=== PATIENT | male | born 1960 | race Caucasian/White ===

== ENCOUNTER → 2017-02-14 | Outpatient (CLI) | payer OTHER | LOC: FIMAGING 14:19 | PROVIDERS: ATTEND Orthopaedic Surgery Foot and Ankle Surgery | DX: M25.571 Pain in right ankle and joints of right foot (principal); Z96.661 Presence of right artificial ankle joint ==

== ENCOUNTER 2017-06-02 23:50 | Emergency (ER) | payer OTHER ==
[2017-06-02 23:57] VITALS: O2SAT 96
[2017-06-03] MEDS ORDERED: OXYCODONE/APAP 5/325 TAB PO ONE (00:54)
--- NOTE | 2017-06-03 01:08 | EDPHY ---
H & P Stated Complaint: says he fell last pm, c/o worsening pain in R elbow since fall Time Seen by Provider: 06/03/17 00:49 HPI/ROS: Chief Complaint: Right arm pain HPI: 57-year-old male with chronic foot injury to have was riding around on a right leg its router last night when he fell onto his right hand side. Patient struck his shoulder but has had progressively worsening pain in his right elbow since then. He has taken his own OxyContin XR without significant relief. No numbness or weakness. No discoloration or cold sensation. No prior injuries to the same area. ROS: 10 point Review of Systems is negative except as noted in the HPI. PMH: HIV, viral load is undetectable, Social History: No smoking, no alcohol, no recreational drug use Family History: non-contributory Physical Exam: Gen: Awake, Alert, No Distress HEENT: Nose: no rhinorrhea Eyes: PERRLA, EOMI Mouth: Moist mucosa Neck: Supple, no JVD Chest: nontender, lungs clear to auscultation Heart: S1, S2 normal, no murmur Abd: Soft, non-tender, no guarding Back: no CVA tenderness, no midline tenderness Ext: Patient has tenderness over his radial head on his right side. He has no shoulder tenderness but is a decreased range of motion secondary to pain. He has 2+ radial ulnar pulses. Sensations intact in the radial, median, and ulnar nerve distribution. All compartments are soft and nontender. Skin: no rash Neuro: CN II-XII intact, Sensation grossly intact, Strength 5/5 in bilateral upper and lower extremities - Personal History Tetanus Vaccine Date: 03/2012 - Medical/Surgical History Hx Asthma: No Hx Chronic Respiratory Disease: No Hx Diabetes: No Hx Cardiac Disease: Yes Hx Renal Disease: No Hx Cirrhosis: No Hx Alcoholism: No Hx HIV/AIDS: No Hx Splenectomy or Spleen Trauma: No Other PMH: HIV positive, hypertension, bilat ankle surg, cervical disc surg, lumbar surg, R knee surg - Social History Smoking Status: Former smoker Constitutional: Initial Vital Signs Temperature (C) 36.5 C 06/02/17 23:53 Heart Rate 88 06/02/17 23:53 Respiratory Rate 20 06/02/17 23:53 Blood Pressure 183/112 H 06/02/17 23:53 O2 Sat (%) 96 06/02/17 23:53 O2 Delivery Mode Room Air Allergies/Adverse Reactions: lisinopril Allergy (Mild, Verified 06/02/17 23:57) DRY COUGH Home Medications: Medication Instructions Recorded clonazePAM [Klonopin (RX)] 0.5 mg PO Q6 PRN 12/29/11 Aspirin [Aspirin 81mg (*)] 81 mg PO DAILY 07/01/16 Dolutegravir Sodium [Tivicay] 50 mg PO DAILY 07/01/16 Emtricitabine/Tenofov Alafenam 1 tab PO DAILY 07/01/16 [Descovy 200-25 mg Tablet] Ibuprofen [Motrin (*)] 200 - 600 mg PO Q4-6PRN PRN 04/12/17 Losartan/Hydrochlorothiazide 1 each PO DAILY 04/12/17 [Losartan-Hctz 100-25 Mg Tab] amLODIPine BESYLATE [Norvasc 5 mg 5 mg PO DAILY 04/12/17 (*)] traMADol [Ultram 50 mg (*)] 50 mg PO Q4 PRN 04/12/17 Oxycontin 05/25/17 Medical Decision Making - Diagnostics Imaging Results: Right elbow x-rays consistent with a radial head fracture per my interpretation. Right shoulder x-rays negative. Imaging: I viewed and interpreted images myself ED Course/Re-evaluation: 57-year-old male with a right radial head fracture. He has been placed in a posterior long-arm splint. I have reassessed the splint and he has excellent positioning in immobility with normal perfusion. He will be discharged with follow up with Orthopedics. - Data Points Medications Given: Discontinued Medications Hydromorphone HCl (Dilaudid) 2 mg IM EDNOW ONE Stop: 06/03/17 01:48 Last Admin: 06/03/17 02:07 Dose: 2 mg Ondansetron HCl (Zofran Odt) 4 mg PO EDNOW ONE Stop: 06/03/17 02:50 Last Admin: 06/03/17 02:52 Dose: 4 mg Ondansetron HCl (Zofran Odt 4 Mg Prepack#2) 1 btl TAKEHOME EDNOW ONE Stop: 06/03/17 02:50 Last Admin: 06/03/17 02:51 Dose: 1 btl Oxycodone/Acetaminophen (Percocet 5/325) 2 tab PO EDNOW ONE Stop: 06/03/17 00:55 Last Admin: 06/03/17 01:01 Dose: 2 tab Oxycodone/Acetaminophen (Percocet 5/325mg Prepack#4) 1 btl TAKEHOME EDNOW ONE Stop: 06/03/17 01:44 Last Admin: 06/03/17 02:06 Dose: 1 btl Departure - Departure Disposition: Home, Routine, Self-Care Clinical Impression: Radial head fracture Condition: Good Instructions: Oxycodone/Acetaminophen (By mouth), Ondansetron (By mouth), Elbow Fracture (ED) Additional Instructions: Follow-up with orthopedics in 2-3 days. Return to the ER for increasing pain, numbness, discoloration of you hand or fingers, or any other concerns. Referrals: Jose Alberto Munoz MD [Primary Care Provider] - As per Instructions Ananda Montes MD [Medical Doctor] - As per Instructions
[2017-06-03] MEDS ORDERED: OXYCODONE/APAP 5/325MG PREPACK#4 BTL TAKEHOME ONE (01:43)
[2017-06-03] MEDS ORDERED: HYDROmorphONE/DILAUDID 1 MG/ML INJ IM ONE (01:47)
[2017-06-03] MEDS ORDERED: ONDANSETRON 4MG PREPACK#2 BTL TAKEHOME ONE (02:49)
[2017-06-03] MEDS ORDERED: ONDANSETRON DISINTEGRATING 4 MG TAB PO ONE (02:49)
[2017-06-03 02:57] VITALS: BP 144/74; PULSE 74; RESP 16; TEMP 97.9
== END 2017-06-03 02:56 | disposition home or self-care (01) ==
DX: S52.121A Displaced fracture of head of right radius, initial encounter for closed fracture (principal); I10 Essential (primary) hypertension; Z87.891 Personal history of nicotine dependence; Z79.82 Long term (current) use of aspirin; W18.09XA Striking against other object with subsequent fall, initial encounter; Y99.8 Other external cause status; Y93.89 Activity, other specified; Z21 Asymptomatic human immunodeficiency virus [HIV] infection status
CPT/HCPCS: A4565; J1170

== ENCOUNTER → 2017-06-05 | Outpatient (CLI) | payer OTHER | LOC: BMCIMAGING 13:39 | PROVIDERS: ATTEND Family Medicine | DX: M18.11 Unilateral primary osteoarthritis of first carpometacarpal joint, right hand (principal) ==

== ENCOUNTER 2017-06-21 10:53 | Inpatient (IN) | payer OTHER ==
--- NOTE | 2017-06-20 17:26 | GHP ---
[f rep st] PREOP HISTORY AND PHYSICAL DATE OF ADMISSION: 06/21/2017 DATE OF SURGERY: Scheduled 06/21/2017. CHIEF COMPLAINT: Right ankle. HISTORY OF PRESENT ILLNESS: Patient is a 57-year-old, who had previously undergone a right total ank le arthroplasty. The patient did well initially but began developing increasing pain and swelling. PAST MEDICAL HISTORY: Positive for HIV. MEDICINES: Include clonazepam, cyclobenzaprine, Descovy, losartan, Tivicay. ALLERGIES: He lists no drug allergies. SOCIAL HISTORY: Negative for tobacco use. PAST SURGICAL HISTORY: Positive for bilateral ankle surgery. PHYSICAL EXAM: He is alert and oriented x3, in no acute distress. HEENT: Head is normocephalic. P upils equal, round, reactive to light. Extraocular eye movements intact. NECK: Supple. No JVD or lymphadenopathy. CHEST: Clear to auscultation. HEART: Regular rate and rhythm. No murmurs or gal lops. ABDOMEN: Soft, nontender, nondistended. No organomegaly. GENITAL/RECTAL/BREAST: Deferred. EXTREMITIES: Marked diffuse swelling in his right ankle. There is anterior tenderness. ASSESSMENT: Failed total ankle arthroplasty. PLAN: The patient is scheduled to undergo revision total ankle arthroplasty. /[id number]/MODL
[2017-06-21] MEDS ORDERED: LR 1,000 ML IV ONE (11:13)
[2017-06-21] MEDS ORDERED: LIDOCAINE 1% 2 ML INJ ID PRN (11:13)
[2017-06-21 11:29] VITALS: PULSE 61
[2017-06-21] MEDS ORDERED: MIDAZOLAM 2 MG/2 ML VIAL ONE (12:21)
--- NOTE | 2017-06-21 13:10 | PDANEPAE ---
ANE History of Present Illness patient presents for R total ankle revision ANE Past Medical History - Cardiovascular History Hx Hypertension: Yes Hx Arrhythmias: No Hx Chest Pain: No Hx Coronary Artery / Peripheral Vascular Disease: No Hx CHF / Valvular Disease: No Hx Palpitations: No Cardiovascular History Comment: HTN DX 2016 AGO PLACED ON RX- well managed - Pulmonary History Hx COPD: No Hx Asthma/Reactive Airway Disease: No Hx Recent Upper Respiratory Infection: No Hx Oxygen in Use at Home: No Hx Sleep Apnea: No Sleep Apnea Screening Result - Last Documented: Positive Pulmonary History Comment: tino triggers only - Neurologic History Hx Cerebrovascular Accident: No Hx Seizures: No Hx Dementia: No - Endocrine History Hx Diabetes: No - Renal History Hx Renal Disorders: Yes Renal History Comment: nocturia - Liver History Hx Hepatic Disorders: No - Neurological & Psychiatric Hx Hx Neurological and Psychiatric Disorders: Yes Neurological / Psychiatric History Comment: insomnia - Cancer History Hx Cancer: Yes Cancer History Comment: 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 CHERRI TOTAL ANKLE. LOPES RODS TLIF. CERVICAL DISCECTOMY. TONSILLECTOMY. RT KNEE SCOPE ANE Review of Systems Review of Systems: - Exercise capacity METS (RN): 4 METS ANE Patient History - Allergies Allergies/Adverse Reactions: lisinopril Allergy (Mild, Verified 06/02/17 23:57) DRY COUGH - Home Medications Home medications: home medication list seen and reviewed Home Medications: clonazePAM [Klonopin (RX)] 0.5 mg PO Q6 PRN 12/29/11 [Last Taken 06/20/17] Aspirin [Aspirin 81mg (*)] 81 mg PO DAILY 07/01/16 [Last Taken 06/16/17] Dolutegravir Sodium [Tivicay] 50 mg PO DAILY 07/01/16 [Last Taken 07/13/16] Emtricitabine/Tenofov Alafenam [Descovy 200-25 mg Tablet] 1 tab PO DAILY [Last Taken 07/13/16] Ibuprofen [Motrin (*)] 200 - 600 mg PO Q4-6PRN PRN 04/12/17 [Last Taken 06/16/17 ] Losartan/Hydrochlorothiazide [Losartan-Hctz 100-25 Mg Tab] 1 each PO DAILY 04/12 [Last Taken 06/20/17] amLODIPine BESYLATE [Norvasc 5 mg (*)] 5 mg PO DAILY 04/12/17 [Last Taken ] traMADol [Ultram 50 mg (*)] 50 mg PO Q4 PRN 04/12/17 [Last Taken 06/20/17] - NPO status NPO Status: no food or drink >8 hours NPO Since - Liquids (Date): 06/21/17 NPO Since - Liquids (Time): 07:00 NPO Since - Solids (Date): 06/20/17 NPO Since - Solids (Time): 23:30 - Smoking Hx Smoking Status: Former smoker - Family Anes Hx Family Hx Anesthesia Complications: none ANE Labs/Vital Signs - Vital Signs Blood Pressure: 155/96 Heart Rate: 61 Respiratory Rate: 16 O2 Sat (%): 95 Height: 175.26 cm Weight: 70.307 kg ANE Physical Exam - Airway Neck exam: FROM Mouth exam: dentures - Pulmonary Pulmonary: no respiratory distress - Cardiovascular Cardiovascular: regular rate and rhythym - ASA Status ASA Status: III ANE Anesthesia Plan Anesthesia Plan: GA w LMA [facility] Anesthesia: single shot NB, continuous NB (rba discussed)
[2017-06-21] MEDS ORDERED: [UNRECOGNIZED DRUG - OTHER] NB ONE (13:27)
[2017-06-21] MEDS ORDERED: ceFAZolin 2 GM/DEXTROSE 100 ML IV ONE (13:46)
[2017-06-21] MEDS ORDERED: ceFAZolin 2 GM/SWFI 2 GM/20 ML SYR IVP ONE (14:00)
[2017-06-21] MEDS ORDERED: WATER FOR INJECTION STERILE NB SCH (14:00)
[2017-06-21] MEDS ORDERED: PUMP SET NB SCH (14:00)
[2017-06-21] MEDS ORDERED: ROPIVACAINE NB SCH (14:00)
[2017-06-21] MEDS ORDERED: VANCOMYCIN HCL/NORMAL SALINE 250 ML IV ONE (14:00)
[2017-06-21] MEDS ORDERED: ONDANSETRON 4 MG/2 ML VIAL ONE ×2 (15:16→17:33)
[2017-06-21] MEDS ORDERED: DEXAMETHASONE 4 MG/ML VIAL ONE (15:16)
[2017-06-21] MEDS ORDERED: fentaNYL 100 MCG/2 ML INJ ONE (15:52)
[2017-06-21] MEDS ORDERED: DEXAMETHASONE 4 MG/ML VIAL IVP PRN (16:20)
[2017-06-21] MEDS ORDERED: ONDANSETRON 4 MG/2 ML VIAL IVP PRN (16:20)
[2017-06-21] MEDS ORDERED: fentaNYL 100 MCG/2 ML INJ IVP PRN (16:20)
[2017-06-21] MEDS ORDERED: HYDROCODONE/APAP 5/325 TAB PO PRN (16:20)
[2017-06-21] MEDS ORDERED: HYDROmorphONE/DILAUDID 1 MG/ML INJ IVP PRN (16:20)
[2017-06-21] MEDS ORDERED: NALOXONE HCL 0.4 MG/ML INJ IVP PRN (16:20)
[2017-06-21] MEDS ORDERED: LR 500 ML IV PRN (16:20)
[2017-06-21] MEDS ORDERED: OXYCODONE/APAP 5/325 TAB PO PRN (16:20)
[2017-06-21] MEDS ORDERED: oxyCODONE IR 5 MG TAB PO PRN (16:34)
[2017-06-21] MEDS ORDERED: ACETAMINOPHEN 325 MG TAB PO PRN (16:34)
--- NOTE | 2017-06-21 17:23 | POSTANESTH ---
Post Anesthetic Evaluation Cardiovascular Status: Normal, Stable Respiratory Status: Similar to Pre-op Cond. Level of Consciousness/Mental Status: Can Participate in Eval Pain Control: Adequate, Prn Tx Ordered Nausea/Vomiting Control: Adequate, Prn Tx Ordered Complications Possibly Related to Anesthesia: None Noted
--- NOTE | 2017-06-21 18:19 | POSTOPPROG ---
Post Op Note Date of Operation: 06/21/17 Surgeon: Jony Chavez Aligning Checker: Caren Anesthesia: GET(General Endotracheal) Pre-op Diagnosis: Painful R TAA Post-op Diagnosis: same Procedure: Revision R TAA Inf/Abcess present in the surg proc area at time of surgery?: No EBL: 50-100
[2017-06-21 18:52] VITALS: BP 148/93
[2017-06-21 19:20] VITALS: RESP 20; TEMP 97.3; O2SAT 94
[2017-06-21] MEDS ORDERED: ceFAZolin 2 GM/DEXTROSE 100 ML IV SCH (22:00)
--- NOTE | 2017-06-22 04:03 | GOP ---
[f rep st] OPERATIVE REPORT DATE OF OPERATION: 06/21/2017 SURGEON: Jony Chavez MD BLANKET MAKER: Davian Fabian PA-C, who was necessary for the completion of the surgery. ANESTHESIA: General plus indwelling popliteal and saphenous nerve blocks performed by the anesthesio logist, at my request, for postoperative pain management. PREOPERATIVE DIAGNOSIS: Painful right total ankle arthroplasty. POSTOPERATIVE DIAGNOSIS: Painful right total ankle arthroplasty. PROCEDURE PERFORMED: 1. Removal of right total ankle arthroplasty. 2. Revision right total ankle arthroplasty. 3. Intraoperative use of fluoroscopy. FINDINGS: ESTIMATED BLOOD LOSS: Less than 100 mL. INDICATIONS: This patient is a 57-year-old who had previously undergone a right total ankle arthropl asty. The patient had initial favorable results, but is having continued increasing pain, swelling, and limitations. Clinically and radiographically he is noted to have subsidence of the talar implant of his ankle replacement. Based on his persistence of symptoms refractory to nonoperative treatment , operative options, including revision or removal and conversion to an arthrodesis were discussed. The patient wished to pursue revision total ankle arthroplasty. The patient acknowledged he understo od the potential risks, including but not limited to, bleeding; infection; neurovascular damage, incl uding loss of limb and limb function; malunion; nonunion; need for further operative treatment; and a nesthetic risks. He acknowledged he understood the potential risks, planned procedure, and postopera tive plan well and had all questions answered. He gave his consent for the operative procedure. DESCRIPTION OF PROCEDURE: The patient was brought to the operating room, after IV antibiotics were a dministered. In preop holding, indwelling popliteal and saphenous nerve blocks were performed by the anesthesiologist at my request for postoperative pain management. General anesthetic was administer ed. A tourniquet was placed on his right thigh with a bump underneath the right hip and shoulder and his right lower leg was prepped and draped in the standard sterile fashion. After marking the incis ion and Jaya wrap exsanguination, the tourniquet was inflated to 250. A previous anterior incision wa s utilized and an anterior approach was utilized for exposure. The skin and subcutaneous tissue were sharply incised. The extensor retinaculum was incised in line with the skin incision. An anterior approach in the interval between the tibialis anterior and extensor hallucis longus was utilized for exposure. The joint capsule was incised. Cultures were obtained with no evidence of infection. Cap sular hypertrophy was sharply excised. Reflections were performed medially and laterally at the caps ular level. Utilizing fine-tipped chisels, the tibial and talar implants were removed without remova l of any additional bone. A very small amount of bone on the distal tibial level was removed with a saw. A drill bit was placed as a rotational guide for setting the tibial cutting block. Pin positio n was checked fluoroscopically and felt to be favorable. A size 4 tibial cutting block was applied a nd pinned into place. Position was confirmed to be favorable fluoroscopically. The transverse, medi al, and lateral cuts were then made with the saw and the bone portions were removed. After utilizing a footplate to keep the foot in a neutral dorsiflexed position, a guidepin was placed from the plant ar aspect of the heel across the calcaneus and talus and into the central aspect of the intramedullar y aspect of the tibia. Pin position was confirmed fluoroscopically and felt to be favorable. After making a small incision on the plantar aspect of the heel and dissecting with hemostats down to the p lantar aspect of the calcaneus, a drill bit was drilled from the heel into the intramedullary aspect of the tibia. 14 mm and 16 mm Reamers were then used to make a trough for the intramedullary aspect of the right [employer] tibial component. Two 14 mm implants were screwed into place and impacte d up to the tibia. These were connected to subsequent 16 mm implants to create the intramedullary st em. After templating the appropriate size, standard base plate was impacted into the tibi al stem and impacted into the tibial surface. Fluoroscopic views confirmed favorable positioning. T he attention was then directed toward the talus. Bone removed from the cup portion of the tibia was cut and impacted into place into the lateral tibial plafond to make up for deficient bone. This bone had been mixed with PRP and "Ignite" from [employer]. The size 3 tibial base plate trial was pl aced and found to have a favorable fit. Drill holes were placed in the talus through the provisional talar block for stems on the talar implant. The definitive size 3 talar implant was placed. There was some laxity laterally with associated tightness medially. Utilizing tenotomy scissors, the delto id was released medially, which allowed the talus to come back into a "central position." Soft tissu e balancing was further accomplished with polyethylene. A 14 mm trial polyethylene provided favorabl e fit range of motion and stability. The definitive size 14 polyethylene was impacted into place. R adiographs confirmed favorable implant positioning with the clinical examination providing favorable stability. Attention was directed towards closure. The tourniquet was released. The deep tissue was closed wit h 2-0 Vicryl suture in an interrupted fashion, the subcutaneous tissue was closed with 3-0 Vicryl sut ure in an interrupted fashion, and the skin closed with 3-0 nylon interrupted vertical mattress sutur es. The wounds were dressed with sterile Adaptic, 4x4, and Webril and the leg was placed in a below- knee splint. The patient tolerated the procedure well and was taken to the recovery room and extubat ed in stable condition postoperatively. All sponge, needle, and instrument counts were reported to dorie mullen correct. DRAINS: None. COMPLICATIONS: None. PLAN: The patient will be discharged home nonweightbearing his operative extremity. /[id number]/MODL
== END 2017-06-21 18:21 | disposition home or self-care (01) | DRG 469 ==
LOC: F3N 10:53
PROVIDERS: ADMIT Orthopaedic Surgery Foot and Ankle Surgery; ATTEND Orthopaedic Surgery Foot and Ankle Surgery
DX: T84.84XA Pain due to internal orthopedic prosthetic devices, implants and grafts, initial encounter (principal); Z96.661 Presence of right artificial ankle joint; I10 Essential (primary) hypertension; G47.33 Obstructive sleep apnea (adult) (pediatric); G47.00 Insomnia, unspecified; Z87.891 Personal history of nicotine dependence; Z21 Asymptomatic human immunodeficiency virus [HIV] infection status
CPT/HCPCS: C1713; C1762; J1100; J2250; J2405; J2795; J3010; J3370

== ENCOUNTER → 2017-12-27 | Outpatient (CLI) | payer OTHER | LOC: FIMAGING 13:13 | PROVIDERS: ATTEND Orthopaedic Surgery Foot and Ankle Surgery | DX: Z47.1 Aftercare following joint replacement surgery (principal); Z96.661 Presence of right artificial ankle joint; M19.071 Primary osteoarthritis, right ankle and foot; M85.472 Solitary bone cyst, left ankle and foot; M81.0 Age-related osteoporosis without current pathological fracture ==

== ENCOUNTER 2018-01-24 10:07 | Day surgery (SDC) | payer OTHER ==
--- NOTE | 2018-01-23 18:13 | GHP ---
[f rep st] PREOP HISTORY AND PHYSICAL CHIEF COMPLAINT: Right hind foot. HISTORY OF PRESENT ILLNESS: The patient is a 57-year-old with involved history relative to his ankle and hindfoot. He has undergone a total ankle arthroplasty and subsequent revision. He is having significant pain in his subtalar region. Clinically and radiographically, he was noted to have collapse into his subtalar joint with impingement of the prosthesis in the posterior aspect of the joint. PAST MEDICAL HISTORY: 1. Positive for hypertension. 2. HIV. MEDICATIONS: 1. Amlodipine. 2. Clonazepam. 3. Cyclobenzaprine. 4. Descovy. 5. Losartan. 6. Hydrochlorothiazide. 7. Ondansetron. 8. Tivicay. ALLERGIES: He lists no drug allergies. SOCIAL HISTORY: Negative for tobacco use. PHYSICAL EXAM: GENERAL: Patient is alert and oriented x3. In no acute distress. HEENT: Head is normocephalic. Pupils equal, round, and reactive to light. Extraocular eye movements intact. NECK: Supple. No JVD or lymphadenopathy. CHEST: Clear to auscultation. HEART: Regular rate and rhythm. No murmurs or gallops. ABDOMEN: Soft, nontender, nondistended. No organomegaly. GENITAL, RECTAL, BREAST: Exams deferred. EXTREMITIES: He has diffuse swelling about his right ankle and hindfoot. He has limited subtalar motion. Pain produced with eversion, and inversion. ASSESSMENT: Right subtalar arthritis. PLAN: The patient is scheduled to undergo a right subtalar distraction arthrodesis with intramedullary bone graft. /[id number]/MODL MTDD
[2018-01-24] MEDS ORDERED: LIDOCAINE 1% 2 ML INJ ID PRN (10:36)
[2018-01-24] MEDS ORDERED: LR 1,000 ML IV ONE (10:36)
[2018-01-24] MEDS ORDERED: LIDOCAINE 1% 2 ML INJ ONE (10:40)
[2018-01-24] MEDS ORDERED: BUPIVACAINE 0.25% 30 ML SDV ONE (10:48)
[2018-01-24] MEDS ORDERED: VANCOMYCIN HCL/NORMAL SALINE 250 ML IV ONE (11:13)
[2018-01-24] MEDS ORDERED: MIDAZOLAM 2 MG/2 ML VIAL ONE (11:25)
[2018-01-24] MEDS ORDERED: ROPIVACAINE HCL 150 MG/30 ML INJ ONE (11:29)
[2018-01-24] MEDS ORDERED: ROPIVACAINE HCL 20 MG/10 ML INJ EP ONE (11:29)
--- NOTE | 2018-01-24 11:45 | PDANEPAE ---
ANE Past Medical History - Cardiovascular History Hx Hypertension: Yes Hx Arrhythmias: No Hx Chest Pain: No Hx Coronary Artery / Peripheral Vascular Disease: No Hx CHF / Valvular Disease: No Hx Palpitations: No Cardiovascular History Comment: HTN DX 2016 AGO PLACED ON RX- well managed - Pulmonary History Hx COPD: No Hx Asthma/Reactive Airway Disease: No Hx Recent Upper Respiratory Infection: No Hx Oxygen in Use at Home: No Hx Sleep Apnea: No Sleep Apnea Screening Result - Last Documented: Positive Pulmonary History Comment: tino triggers - Neurologic History Hx Cerebrovascular Accident: No Hx Seizures: No Hx Dementia: No - Endocrine History Hx Diabetes: No - Renal History Hx Renal Disorders: Yes Renal History Comment: nocturia - Liver History Hx Hepatic Disorders: No - Neurological & Psychiatric Hx Hx Neurological and Psychiatric Disorders: Yes Neurological / Psychiatric History Comment: insomnia - Cancer History Hx Cancer: Yes Cancer History Comment: SKIN - Congenital Disorder History Hx Congenital Disorders: No - GI History Hx Gastrointestinal Disorders: No Gastrointestinal History Comment: hx of colon polyp - Other Health History Other Health History: HIV POSITIVE - Chronic Pain History Chronic Pain: Yes (RT ANKLE) - Surgical History Prior Surgeries: RT TOTAL ANKLE 06/21/17. RT ANKLE revision 2015. CHERRI TOTAL ANKLE. LOPES RODS TLIF. CERVICAL DISCECTOMY. TONSILLECTOMY. RT KNEE SCOPE ANE Review of Systems Review of systems is: negative Review of Systems: - Exercise capacity METS (RN): 5 METS ANE Patient History - Allergies Allergies/Adverse Reactions: lisinopril Allergy (Mild, Verified 06/02/17 23:57) DRY COUGH - Home Medications Home Medications: clonazePAM [Klonopin (RX)] 0.5 mg PO Q6 PRN 12/29/11 [Last Taken 01/23/18 20:00] Aspirin [Aspirin 81mg (*)] 81 mg PO DAILY 07/01/16 [Last Taken 1 Week Ago ~01/17] Dolutegravir Sodium [Tivicay] 50 mg PO DAILY 07/01/16 [Last Taken 01/24/18 07:30 ] Emtricitabine/Tenofov Alafenam [Descovy 200-25 mg Tablet] 1 tab PO DAILY [Last Taken 01/24/18 07:30] Ibuprofen [Motrin (*)] 200 - 600 mg PO Q4-6PRN PRN 04/12/17 [Last Taken 1 Week Ago ~01/17/18] Losartan/Hydrochlorothiazide [Losartan-Hctz 100-25 Mg Tab] 1 each PO DAILY 04/12 [Last Taken 01/23/18] amLODIPine BESYLATE [Norvasc 5 mg (*)] 5 mg PO DAILY 04/12/17 [Last Taken 07:30] traMADol [Ultram 50 mg (*)] 50 mg PO Q4 PRN 04/12/17 [Last Taken 01/23/18] Losartan Potassium DAILY 01/17/18 [Last Taken 01/24/18 07:30] - NPO status NPO Since - Liquids (Date): 01/24/18 NPO Since - Liquids (Time): 08:00 NPO Since - Solids (Date): 01/23/18 NPO Since - Solids (Time): 11:59 - Smoking Hx Smoking Status: Former smoker - Alcohol Use Alcohol Use: Other (1-3 beers a day) - Family Anes Hx Family Hx Anesthesia Complications: none ANE Labs/Vital Signs - Vital Signs Blood Pressure: 132/64 Heart Rate: 54 Respiratory Rate: 15 O2 Sat (%): 92 Height: 177.8 cm Weight: 70.307 kg ANE Physical Exam - Airway Neck exam: FROM Mallampati Score: Class 1 Mouth exam: normal dental/mouth exam - Pulmonary Pulmonary: no respiratory distress - Cardiovascular Cardiovascular: regular rate and rhythym - ASA Status ASA Status: II ANE Anesthesia Plan Anesthesia Plan: GA w LMA
[2018-01-24] MEDS ORDERED: PROPOFOL 200 MG/20 ML VIAL ONE (12:04)
[2018-01-24] MEDS ORDERED: fentaNYL 100 MCG/2 ML INJ ONE ×3 (12:04→14:16)
[2018-01-24] MEDS ORDERED: THROMBIN (BOVINE) 5,000 UNIT VIAL TP ONE (12:04)
[2018-01-24] MEDS ORDERED: CALCIUM CHLORIDE 1 GM/10 ML INJ ONE (12:05)
[2018-01-24] MEDS ORDERED: ONDANSETRON 4 MG/2 ML VIAL IVP PRN (14:12)
[2018-01-24] MEDS ORDERED: PROMETHAZINE HCL 25 MG/ML INJ IVP PRN (14:12)
[2018-01-24] MEDS ORDERED: NALOXONE HCL 0.4 MG/ML INJ IVP PRN (14:12)
[2018-01-24] MEDS ORDERED: HYDROmorphONE/DILAUDID 1 MG/ML INJ IVP PRN (14:12)
--- NOTE | 2018-01-24 14:13 | POSTANESTH ---
Post Anesthetic Evaluation Cardiovascular Status: Normal, Stable Respiratory Status: Normal, Stable Level of Consciousness/Mental Status: Can Participate in Eval, Mildly Sleepy, Arousable Pain Control: Adequate, Prn Tx Ordered Nausea/Vomiting Control: Adequate, Prn Tx Ordered Complications Possibly Related to Anesthesia: None Noted
[2018-01-24] MEDS: fentaNYL 100 MCG/2 ML INJ IVP PRN ×2 (14:15→14:36)
--- NOTE | 2018-01-24 14:15 | POSTOPPROG ---
Post Op Note Date of Operation: 01/24/18 Surgeon: Jony Chavez Anesthesia: LMA Pre-op Diagnosis: R subtalar arthrosis Post-op Diagnosis: Same Procedure: R subtalar distraction arthrodesis, local bone graft Inf/Abcess present in the surg proc area at time of surgery?: No EBL: Minimal
[2018-01-24 15:52] VITALS: BP 121/73
--- NOTE | 2018-01-27 13:36 | GOP ---
[f rep st] OPERATIVE REPORT DATE OF OPERATION: 01/24/2018 SURGEON: Jony Chavez MD ANESTHESIA: General plus popliteal nerve block performed by the anesthesiologist at my request for p ostoperative pain management. PREOPERATIVE DIAGNOSIS: 1. Right subtalar arthrosis. 2. Malpositioned hind foot. POSTOPERATIVE DIAGNOSIS: 1. Right subtalar arthrosis. 2. Malpositioned hind foot. PROCEDURE PERFORMED: 1. Right subtalar distraction arthrodesis. 2. Local bone graft. 3. Intraoperative use of fluoroscopy. FINDINGS: ESTIMATED BLOOD LOSS: Minimal. INDICATIONS: The patient is a 57-year-old with very involved history relative to his ankle. The pat ient had undergone prior and subsequent revision total ankle arthroplasties. While his ankle clinica lly and radiographically was doing okay, there was significant loss of his posterior talus with subse quent subsidence of the implant, abutting up against the posterior calcaneus. Based on his persisten ce of symptoms, refractory nonoperative treatment, management via subtalar distraction arthrodesis to restore the ankle to an appropriate position and alleviate his subtalar arthrosis was recommended. The patient acknowledged he understood the potential risks of the operation, including but not limite d to bleeding, infection, nerve or vessel damage, malunion, nonunion, pain or functional limitations despite operative treatment, potential for below-knee amputation if surgery is unsuccessful, and anes thetic risks. He acknowledged he understood the potential risks, planned procedure, and postoperativ e plan well, and had all questions answered prior to surgery. He gave his consent for the operative procedure. DESCRIPTION OF PROCEDURE: The patient was brought to the operating room after IV antibiotics were ad ministered. Popliteal block was performed by the anesthesiologist at my request for postoperative pa in management. General anesthetic was administered. A tourniquet was placed on the right thigh, bum p underneath the right hip and shoulder, and right lower extremity was prepped and draped in standard sterile fashion. After marking the incision and Jaya wrap exsanguination, tourniquet was inflated to 250. Oblique incision was made in the sinus tarsi in line with the lateral subtalar joint. Skin an d subcutaneous tissue were sharply incised. Sharp dissection was carried dorsal to the peroneal tend ons, exposing the subtalar joint. Subtalar position was confirmed fluoroscopically. The fibrous tis tate and remnants of any articular surface were denuded with a chisel and rongeur. The chondral surfa ce was roughened with a chisel. A bone spreader operator automatic was then placed in the subtalar joint, distracting t he subtalar joint out into an appropriate position. Position was confirmed fluoroscopically. In ord er to provide structural support as well as osseous healing, a metal cage (4D) was chosen for supplem entation of the subtalar joint. Local bone graft was then harvested. It was felt that sufficient bone would be obtainable through th e proximal tibia. A longitudinal incision was made along the lateral aspect of the proximal tibia ov erlying Gerdy's tubercle. Sharp dissection was carried down to the periosteal level. Utilizing a ch rashad, an osseous trapdoor was created. Curettes were utilized to harvest cancellous bone from the pr oximal tibia. A combination of cancellous autograft and ViviGen (Kelly Van Gogh Hair Colour) was packed into the cage, on both the talus and calcaneal surface of the cage. The wedge-shaped cage was then impacted into pl jaya. Position was confirmed fluoroscopically. Additional bone graft was impacted into the subtalar joint. Screw fixation was then accomplished. A small incision was made under fluoroscopic guidance on the dorsal aspect of the neck and head of the talus. A 4.0 mm cortical screw was placed from the talus into the calcaneus. Screw position was confirmed fluoroscopically and found to be optimal. Attention was directed toward closure. Deep tissue was closed with 2-0 Vicryl suture in interrupted fashion. Subcutaneous tissue closed with 3-0 Vicryl suture in interrupted fashion. Skin closed with 3-0 nylon interrupted vertical mattress sutures. 0.5% Marcaine without epinephrine was injected in the wound sites. The wounds were dressed with sterile Adaptic, 4 x 4, and Webril, and leg was placed in a below-knee splint. The patient tolerated the procedure well and was taken to the recovery room , extubated in stable condition postoperatively. All sponge, needle, and instrument counts were repo rted as being correct. DRAINS: None. COMPLICATIONS: None. PLAN: Patient will be discharged home, nonweightbearing on his operative extremity. /[id number]/MODL
== END 2018-01-24 15:40 | disposition home or self-care (01) ==
LOC: FSGY 10:07
PROVIDERS: ATTEND Orthopaedic Surgery Foot and Ankle Surgery
PROC: 0SGH07Z Fusion of Right Tarsal Joint with Autologous Tissue Substitute, Open Approach (ICD-10-PCS; principal; 2018-01-24 11:30)
DX: T84.223A Displacement of internal fixation device of bones of foot and toes, initial encounter (principal); I10 Essential (primary) hypertension; Z21 Asymptomatic human immunodeficiency virus [HIV] infection status
CPT/HCPCS: C1713; C1762; J2250; J2704; J2795; J3010; J3370

== ENCOUNTER → 2018-06-26 | Outpatient (CLI) | payer OTHER | LOC: FIMAGING 16:17 | PROVIDERS: ATTEND Physician Assistant | DX: S13.140A Subluxation of C3/C4 cervical vertebrae, initial encounter (principal); S13.160A Subluxation of C5/C6 cervical vertebrae, initial encounter; M48.56XA Collapsed vertebra, not elsewhere classified, lumbar region, initial encounter for fracture; Z98.1 Arthrodesis status ==

== ENCOUNTER → 2018-07-02 | Outpatient (CLI) | payer OTHER | LOC: FIMAGING 08:36 | PROVIDERS: ATTEND Physician Assistant | DX: M54.12 Radiculopathy, cervical region (principal); Z98.1 Arthrodesis status ==

== ENCOUNTER 2018-09-20 05:26 | Inpatient (IN) | payer MEDICAID ==
--- NOTE | 2018-09-19 22:21 | PDANEPAE ---
ANE History of Present Illness T 9,10,11 posterior fusion ANE Past Medical History - Cardiovascular History Hx Hypertension: Yes Hx Arrhythmias: No Hx Chest Pain: No Hx Coronary Artery / Peripheral Vascular Disease: No Hx CHF / Valvular Disease: No Hx Palpitations: No Cardiovascular History Comment: HTN DX 2016 AGO PLACED ON RX- well managed - Pulmonary History Hx COPD: No Hx Asthma/Reactive Airway Disease: No Hx Recent Upper Respiratory Infection: No Hx Oxygen in Use at Home: No Hx Sleep Apnea: No Sleep Apnea Screening Result - Last Documented: Positive Pulmonary History Comment: tino triggers - Neurologic History Hx Cerebrovascular Accident: No Hx Seizures: No Hx Dementia: No - Endocrine History Hx Diabetes: No Hypothyroid: No Hyperthyroid: No Obesity: no - Renal History Hx Renal Disorders: Yes Renal History Comment: nocturia - Liver History Hx Hepatic Disorders: No - Neurological & Psychiatric Hx Hx Neurological and Psychiatric Disorders: Yes Neurological / Psychiatric History Comment: insomnia - Cancer History Hx Cancer: Yes Cancer History Comment: SKIN - Congenital Disorder History Hx Congenital Disorders: No - GI History GERD: no Hx Gastrointestinal Disorders: No Gastrointestinal History Comment: hx of colon polyp - Other Health History Other Health History: HIV POSITIVE - Chronic Pain History Chronic Pain: Yes (THORACIC AREA) - Surgical History Prior Surgeries: RT TOTAL ANKLE 06/21/17. RT ANKLE revision 2015. CHERRI TOTAL ANKLE. LOPES RODS TLIF. CERVICAL DISCECTOMY. TONSILLECTOMY. RT KNEE SCOPE ANE Review of Systems Review of Systems: - Exercise capacity METS (RN): 5 METS ANE Patient History - Allergies Allergies/Adverse Reactions: lisinopril Allergy (Mild, Verified 06/02/17 23:57) DRY COUGH - Home Medications Home Medications: clonazePAM [Klonopin (*)] 0.5 mg PO Q6 PRN 12/29/11 [Last Taken 09/19/18 18:00] Aspirin [Aspirin 81mg (*)] 81 mg PO DAILY 07/01/16 [Last Taken 09/14/18 08:00] Dolutegravir Sodium [Tivicay] 50 mg PO DAILY 07/01/16 [Last Taken 09/20/18 05:00 ] Emtricitabine/Tenofov Alafenam [Descovy 200-25 mg Tablet] 1 tab PO DAILY [Last Taken 09/20/18 05:00] Ibuprofen [Motrin (*)] 200 - 600 mg PO Q4-6PRN PRN 04/12/17 [Last Taken 09/14/18 ] Losartan/Hydrochlorothiazide [Losartan-Hctz 100-25 mg Tab] 1 each PO DAILY 04/12 [Last Taken 09/19/18 08:00] amLODIPine BESYLATE [Norvasc 5 mg (*)] 5 mg PO DAILY 04/12/17 [Last Taken 05:00] traMADol [Ultram 50 mg (*)] 50 mg PO Q4 PRN 04/12/17 [Last Taken 09/19/18 12:00] Tizanidine HCl PRN 09/19/18 [Last Taken 09/19/18 18:00] - Anes Hx Anes Hx: no prior problems - Smoking Hx Smoking Status: Former smoker - Alcohol Use Alcohol Use: Other (2 drinks x3/week) - Family Anes Hx Family Anes Hx: none Family Hx Anesthesia Complications: none ANE Labs/Vital Signs - Labs Result Diagrams: 09/20/18 06:15 - Vital Signs Blood Pressure: 125/74 Heart Rate: 53 O2 Sat (%): 95 Height: 175.26 cm Weight: 74.843 kg ANE Physical Exam - Airway Neck exam: FROM Mallampati Score: Class 1 Mouth exam: dentures - Pulmonary Pulmonary: clear to auscultation - Cardiovascular Cardiovascular: regular rate and rhythym - ASA Status ASA Status: II ANE Anesthesia Plan Anesthesia Plan: general endotracheal anesthesia
[2018-09-20] MEDS ORDERED: ACETAMINOPHEN 500 MG TAB PO ONE (05:41)
[2018-09-20] MEDS ORDERED: ceFAZolin 2 GM/DEXTROSE 100 ML IV ONE (05:41)
[2018-09-20] MEDS ORDERED: GABAPENTIN 300 MG CAP PO ONE (05:41)
[2018-09-20] MEDS ORDERED: LR 1,000 ML IV ONE (05:42)
[2018-09-20] MEDS ORDERED: LIDOCAINE 1% 2 ML INJ ID PRN (05:42)
--- NOTE | 2018-09-20 06:25 | PDHPUP ---
History & Physical Update H&P update statement: This history and physical update is based on an assessment of the patient which was completed after admission or registration (within 24 hours), but prior to the surgery/procedure. H&P update: H&P reviewed & patient examined, no change in patient's condition since H&P completed
[2018-09-20 06:27] LABS: PLATELET COUNT 259 10^3/uL (150-400)
[2018-09-20] MEDS ORDERED: MIDAZOLAM 2 MG/2 ML VIAL IVP ONE (06:52)
[2018-09-20] MEDS ORDERED: PROPOFOL/EMULSION 500 MG/50 ML BOTTLE IV ONE ×2 (06:57→08:53)
[2018-09-20] MEDS ORDERED: fentaNYL 250 MCG/5 ML INJ ONE (06:57)
[2018-09-20] MEDS ORDERED: KETAMINE 200 MG/20 ML VIAL ONE (06:57)
[2018-09-20] MEDS ORDERED: BUPIVACAINE 0.25% 30 ML SDV ONE (06:58)
[2018-09-20] MEDS ORDERED: ROCURONIUM 50 MG/5 ML VIAL ONE (06:58)
[2018-09-20] MEDS ORDERED: CHLORHEXIDINE GLUC HIBICLENS 118 ML BTL TP ONE (06:58)
[2018-09-20] MEDS ORDERED: THROMBIN (BOVINE) 20,000 UNIT VIAL TP ONE ×2 (06:58→06:59)
[2018-09-20] MEDS ORDERED: EPINEPHrine 1 MG/ML INJ ONE (06:59)
[2018-09-20] MEDS ORDERED: BACITRACIN 50,000 UNITS/10 ML SYR IRR ONE (06:59)
[2018-09-20] MEDS ORDERED: PHENYLEPHRINE 10 MG/ML SDV ONE (07:10)
[2018-09-20] MEDS ORDERED: LACTULOSE 20 GM/30 ML UDCUP PO PRN (07:18)
[2018-09-20] MEDS ORDERED: ONDANSETRON 4 MG/2 ML VIAL IVP PRN ×2 (07:18→10:23)
[2018-09-20] MEDS ORDERED: ONDANSETRON DISINTEGRATING 4 MG TAB PO PRN (07:18)
[2018-09-20] MEDS ORDERED: diphenhydrAMINE 25 MG CAP PO PRN (07:18)
[2018-09-20] MEDS ORDERED: HYDROmorphONE/DILAUDID 6 MG/30 ML PCA IV PRN (07:18)
[2018-09-20] MEDS ORDERED: MAGNESIUM HYDROXIDE 30 ML UDCUP PO PRN (07:18)
[2018-09-20] MEDS ORDERED: NALOXONE HCL 0.4 MG/ML INJ IVP PRN ×2 (07:18→10:23)
[2018-09-20] MEDS ORDERED: HYDROCODONE/APAP 5/325 TAB PO PRN (07:18)
[2018-09-20] MEDS ORDERED: BISACODYL 10 MG SUPP PR PRN (07:18)
[2018-09-20] MEDS ORDERED: HYDROmorphONE/DILAUDID 1 MG/ML INJ IVP PRN (07:18)
[2018-09-20] MEDS ORDERED: POLYETHYLENE GLYCOL 3350 17 GM PKT PO PRN (07:18)
[2018-09-20] MEDS ORDERED: NS 1,000 ML IV SCH (07:30)
[2018-09-20] MEDS ORDERED: fentaNYL 100 MCG/2 ML INJ ONE ×2 (09:06→11:35)
[2018-09-20] MEDS ORDERED: GLYCOPYRROLATE 0.2 MG/1 ML VIAL ONE (10:16)
[2018-09-20] MEDS ORDERED: NEOSTIGMINE METHYLSULFATE 5 MG/5 ML SYR ONE (10:16)
[2018-09-20] MEDS ORDERED: HYDROmorphONE/DILAUDID 2 MG/ML INJ IVP PRN (10:23)
[2018-09-20] MEDS ORDERED: fentaNYL 100 MCG/2 ML INJ IVP PRN (10:23)
--- NOTE | 2018-09-20 11:06 | POSTOPPROG ---
Post Op Note Date of Operation: 09/20/18 Surgeon: Clinton Queen Wood Grinder Operator: MELIA Salvador Anesthesiologist: MD Mitchel Anesthesia: GET(General Endotracheal), Local (Specify) Pre-op Diagnosis: T spine stenosis T9/10 and T10/11 Post-op Diagnosis: T spine stenosis T9/T10 and T10/T11 Indication: MRI findings of T spine stenosis Procedure: T9/10 and T10/T11 lami and fusion Findings: see op report Inf/Abcess present in the surg proc area at time of surgery?: No Depth: Deep Incisional (Fascial) EBL: 100-500 Total fluids administered: see anesthesia record Complications: none Drains: Mike Varela
--- NOTE | 2018-09-20 11:10 | SOAPPROG ---
SOAP Progress Note Assessment/Plan: Post Op Visit: S: Awake and alert. NAD. Pt with expected lower back pain O: AFVSS/PERRLA/EOMI no droop CN 2-12 grossly intact +lt touch 5/5 BUE/BLE = CDI JENNIFER in place A/P: 58 yo male that is s/p PSF T9/10 and T10/T11 for thoracic stenosis -orders in place -no brace needed -PT/OT -pt seen by Dr Queen as well -post op xrays in am -call with any questions or concerns -pt understands and agrees 09/20/18 11:06 Objective: Vital Signs Temp Pulse Resp BP Pulse Ox 36.5 C 53 L 16 125/74 H 95 09/20/18 06:40 09/20/18 07:09 09/20/18 06:40 09/20/18 07:09 09/20/18 07:09 Laboratory Results 09/20/18 06:15 ICD10 Worksheet Patient Problems: Problems Problem Status Onset Status post thoracic spinal fusion Acute Thoracic stenosis Acute Lumbar spinal fusion Active - ICD10 Problem Qualifiers (1) Thoracic stenosis (2) Status post thoracic spinal fusion
--- NOTE | 2018-09-20 11:55 | PDMN ---
Medical Necessity Medical necessity: [facility] IP only surgery; cpt 10824 Thoracic Arthrodesis (T9- T11 fusion/laminectomy)
--- NOTE | 2018-09-20 13:17 | POSTANESTH ---
Post Anesthetic Evaluation Cardiovascular Status: Similar to Pre-Op Cond Respiratory Status: Normal, Stable Level of Consciousness/Mental Status: Can Participate in Eval Pain Control: Adequate, Prn Tx Ordered Nausea/Vomiting Control: Adequate, Prn Tx Ordered Complications Possibly Related to Anesthesia: None Noted
[2018-09-20] MEDS: ACETAMINOPHEN 500 MG TAB PO SCH ×2 (13:53→21:33)
[2018-09-20] MEDS: oxyCODONE IR 5 MG TAB PO PRN ×2 (13:53→21:34)
[2018-09-20] MEDS: GABAPENTIN 300 MG CAP PO SCH ×2 (13:53→21:33)
[2018-09-20] MEDS: SENNOSIDES/DOCUSATE SODIUM TAB PO SCH ×2 (14:33→21:33)
[2018-09-20] MEDS: ceFAZolin 2 GM/DEXTROSE 100 ML IV SCH ×2 (15:59→23:57)
[2018-09-20] MEDS ORDERED: traMADol 50 MG TAB PO PRN (16:00)
[2018-09-20] MEDS ORDERED: clonazePAM 0.5 MG TAB PO PRN (16:00)
[2018-09-20] MEDS: METHOCARBAMOL 750 MG TAB PO PRN (17:28)
--- NOTE | 2018-09-20 18:03 | GOP ---
[f rep st] OPERATIVE REPORT DATE OF OPERATION: 09/20/2018 SURGEON: Samra Queen MD NEUROSURGEON: Samra Queen MD. DIRECTOR ADVERTISING: Ananda Salvador PA-C. PREOPERATIVE DIAGNOSIS: Severe thoracic stenosis with degenerative disk disease at T9-10, T10-11 wit h thoracic myelopathy. POSTOPERATIVE DIAGNOSIS: Severe thoracic stenosis with degenerative disk disease at T9-10, T10-11 wi th thoracic myelopathy. PROCEDURE PERFORMED: T10-11 thoracic decompression without facetectomy, decompression of the central spinal canal at T10-11, posterolateral arthrodesis only at T9-10 and T10-11, posterior segmental ins trumentation, T9, T10, and 11. Same incision bone graft harvest. Spinal stereotaxis. FINDINGS: ESTIMATED BLOOD LOSS: 100 cc. INDICATIONS: The patient is a 58-year-old with a prior history of a lumbosacral fusion. He had prakash re adjacent segment disease above that at the L2-3 level. He also on workup was noticed to have prakash re thoracic stenosis as well with thoracic myelomalacia. I suggested decompression at that level. H e had both ventral and dorsal compressive elements at T10-11 and severe disk degenerative changes at T9-10, 10-11, and I suggested a fusion at that level, particularly given the fact the patient had rem arkable cervical spondylosis and the need for an extensive cervical reconstruction. He also had shannan cent segment disease in his lumbar spine. It is almost certain that he is going to have increasing n eed for spinal fusions and I did not want to do the thoracic spine without including hardware and fus ion at that level. In addition, the dynamic process at T10-11 in my view was a concern and I wanted to create arthrodesis to stabilize the spondylosis at that level, so the ventral defect did not grow over time. He understood the risks of the procedure including the risk of paraplegia, pseudoarthrosi s, adjacent segment disease and the need for many future spine surgeries. He was already posted for cervical reconstructive surgery, as well as a lumbar surgery and we wanted to proceed despite the ris ks. He knew that this surgery may or may not improve his overall quality of life because it was not totally clear that this was causing remarkable symptoms, but I felt this was the most threatening les ion in his spine. We will probably correct the cervical abnormality next, followed by the lumbar. DESCRIPTION OF PROCEDURE: The patient was taken to the operating room, placed in supine position. G eneral anesthesia was begun. He was flipped prone onto the Mike table. Care was taken to pad all points of contact. His back was sterilely prepped and draped in the usual fashion. A localizing x- ray was taken. We counted probably 20 different times during the surgery. We were fusing the 5th an d 6th disks above his prior lumbar fusion and we would count from the lumbar fusion up to the T9-10, T10-11 level and I did this publically in front of people many times. We made an incision above the 9-10, 10-11 level and exposed the transverse processes of T9, T10, T11. We attached the Stealth ref erence frame and began with an O-arm spin and we had some technical difficulties with the O-arm and S tealth station. We had to spin them again. This was about a 25 minute delay. We were able to event ually get good data and using frameless Stealth stereotaxy, placed pedicle screws bilaterally at T9, T10, and T11. They all were in excellent position. We confirmed it with another O-arm spin. We too k rods, put them down over the tulips. Final tightened the cap screws according to company specifica tion. We then removed all the soft tissue and the bone at T10-11. We then harvested the T10 spinous process and the inferior T9 spinous process for autologous grafting purposes. We drilled bilateral laminectomies of T10 and completely removed the T10 lamina. There was facet arthropathy and severe d orsal compression of the thecal sac at that level. We worked our way up on the lateral recesses or t he lateral parts of the spinal canal and decompressed all the way to the inferior T9 lamina. We johnnie alejandra just a small portion of the T9 lamina itself. We got great decompressions. Motor evoked potenti als and SSEPs were stable throughout surgery. We then decorticated all the posterolateral bone and f acet joints at T9-10 and T10-11 to create arthrodesis and laid BMP and bone autograft posterolaterall y bilaterally, followed by a subfascial drain. We then closed the incision in multiple layers using Vicryl sutures. Steri-Strips were applied to the skin. The patient was reversed from anesthesia, ex tubated, and transferred to recovery room in stable condition. COMPLICATIONS: None. INSTRUMENTATION USED: [employer] Solera 5.5 mm system. We used 5.5 mm screws at T9 and T10. We used 6.5 mm screws at T11. We used an extra small BMP. /[id number]/MODL
[2018-09-21] MEDS: METHOCARBAMOL 750 MG TAB PO PRN ×2 (00:55→14:41)
[2018-09-21] MEDS: oxyCODONE IR 5 MG TAB PO PRN ×4 (00:56→17:04)
[2018-09-21] MEDS: ACETAMINOPHEN 500 MG TAB PO SCH ×2 (05:50→14:39)
[2018-09-21] MEDS: GABAPENTIN 300 MG CAP PO SCH ×2 (05:50→14:39)
[2018-09-21 06:12] LABS: PLATELET COUNT 258 10^3/uL (150-400)
--- NOTE | 2018-09-21 07:27 | SOAPPROG ---
SOAP Progress Note Assessment/Plan: Assessment: 58 yo M POD #1 T9-11 decompression/fusion Plan: neuro: stable and doing well overall :) PT/OT x-rays today scd/héctor for dvt prophylaxis JENNIFER x 1 try to dc later today if doing well please call with neuro changes discussed with Dr Queen 09/21/18 07:26 Subjective: + back pain, no leg pain no weakness. Objective: Vital Signs Temp Pulse Resp BP Pulse Ox 35.9 C L 66 16 129/86 H 97 09/21/18 04:15 09/21/18 04:15 09/21/18 04:15 09/21/18 04:15 09/21/18 04:15 Laboratory Results 09/21/18 04:18 09/21/18 04:18 09/20/18 09/21/18 09/22/18 05:59 05:59 05:59 Intake Total 2450 Output Total 2890 Balance -440 AAOx4, +FC PERRL, EOMI, no facial droop 5/5 + light touch C/D/I ICD10 Worksheet Patient Problems: Problems Problem Status Onset Status post thoracic spinal fusion Acute Thoracic stenosis Acute Lumbar spinal fusion Active
[2018-09-21] MEDS: SENNOSIDES/DOCUSATE SODIUM TAB PO SCH (08:38)
[2018-09-21] MEDS ORDERED: DOLUTEGRAVIR SODIUM 50 MG PO SCH (09:00)
[2018-09-21] MEDS ORDERED: TENOFOV ALAFENAM PO SCH (09:00)
[2018-09-21] MEDS ORDERED: LOSARTAN/HCTZ 50/12.5 1 TAB PO SCH (09:00)
[2018-09-21] MEDS ORDERED: EMTRICITABINE PO SCH (09:00)
--- NOTE | 2018-09-21 11:13 | ASMTCMCOM ---
CM Note CM Note Notes: Pt had planned T9/T10 and T10/T11 fusion/laminectomy, resides alone. PT rec home. Anticipate pt will d/c when medically stable. No CM d/c needs identified. CM available for changes/needs. Date Signed: 09/21/2018 11:12 AM Electronically Signed By:HAO Lee
[2018-09-21 16:38] VITALS: BP 132/78
[2018-09-23] MEDS ORDERED: ENOXAPARIN 40 MG/0.4 ML SYR SC SCH (09:00)
--- NOTE | 2018-09-28 11:46 | GDS ---
[f rep st] DISCHARGE SUMMARY PRIMARY DIAGNOSIS: Severe thoracic stenosis with degenerative disk disease at T9-10, T10-11, with th oracic myelopathy. OPERATION/PROCEDURE: A T10-11 thoracic decompression without facetectomy, decompression of the centr al canal at T10-11, posterolateral arthrodesis at T9-10 and T10-11, posterior segmental instrumentati on T9, T10, and T11 with same incision bone graft harvest, occurred with Dr. Alonso Queen at [facility] on 09/20/2017. HOSPITAL COURSE: The patient is a 58-year-old male with a prior history of a lumbosacral fusion. He had severe adjacent segment disease above that at L2-3 level. He also had workup and noticed that h e had severe thoracic stenosis, as well as thoracic myelomalacia. Suggestion for decompression of th at level was given to the patient. He had both ventral and dorsal compressive elements at T10-11 and severe degenerative disk changes at T9-10 and T10-11, and a suggestion for fusion at that level was given to the patient. The patient also has severe cervical spondylosis and will need extensive cervi varghese reconstruction at some point as well. Due to the compression of the spinal cord at the thoracic level, this took precedence. He underwent the above-mentioned procedure on 09/20/2017. He tolerated it well. He was admitted pos toperatively and was seen on a daily basis. He had thoracic spine x-rays which were obtained on 08/26 which showed excellent spinal alignment and hardware integrity. No complications were noted. The patient was seen, as I mentioned, the next day. He had worked with PT and OT and he had met [facility] tayla for discharge. Please see med rec form. He was doing well, stable and neuro intact. His x-ra ys were reviewed with the patient, as well as Dr. Queen. He was placed in SCDs and TEDs for DVT pro phylaxis and he had a JENNIFER that was placed and was later removed. The patient met criteria and was dis charged home. CONSULTS: None. COMPLICATIONS: None. DISCHARGE CONDITION: Stable and improved. DISCHARGE INSTRUCTIONS: Standard discharge instructions were given the patient following an instrume nted spinal fusion. We talked about worsening symptoms, new pain, weakness, numbness, tingling, loss of bowel or bladder control, problems with gait or balance. He will follow up with us in the office for recheck in 2 weeks, then likely at 2 months, 3-6 months, 9 months to a year, a year and a half, and 2 years with x-rays when clinically appropriate. All questions and concerns were answered. The patient understands and agrees. /[id number]/MODL
== END 2018-09-21 17:33 | disposition home or self-care (01) | DRG 304 ==
LOC: F3N 05:26
PROVIDERS: ADMIT Neurological Surgery; ATTEND Neurological Surgery
DX: M48.04 Spinal stenosis, thoracic region (principal); M51.04 Intervertebral disc disorders with myelopathy, thoracic region; M51.34 Other intervertebral disc degeneration, thoracic region; I10 Essential (primary) hypertension; G47.33 Obstructive sleep apnea (adult) (pediatric); G47.00 Insomnia, unspecified; Z21 Asymptomatic human immunodeficiency virus [HIV] infection status; Z87.891 Personal history of nicotine dependence
CPT/HCPCS: 97161-GP; 97165-GO; C1713; J0171; J0690; J2250; J2370; J2704; J2710; J3010

== ENCOUNTER → 2018-11-14 | Outpatient (CLI) | payer MEDICAID | LOC: FIMAGING 13:39 → EDSTATUS 13:42 | PROVIDERS: ATTEND Neurological Surgery | DX: Z09 Encounter for follow-up examination after completed treatment for conditions other than malignant neoplasm (principal); Z98.1 Arthrodesis status ==

== ENCOUNTER 2018-11-29 06:27 | Inpatient (IN) | payer MEDICAID ==
[2018-11-29] MEDS ORDERED: GABAPENTIN 300 MG CAP PO ONE (06:35)
[2018-11-29] MEDS ORDERED: ceFAZolin 2 GM/DEXTROSE 100 ML IV ONE (06:35)
[2018-11-29] MEDS ORDERED: ACETAMINOPHEN 500 MG TAB PO ONE (06:35)
[2018-11-29] MEDS ORDERED: LR 1,000 ML IV ONE (06:36)
--- NOTE | 2018-11-29 06:48 | PDANEPAE ---
ANE Past Medical History - Cardiovascular History Hx Hypertension: Yes Hx Arrhythmias: No Hx Chest Pain: No Hx Coronary Artery / Peripheral Vascular Disease: No Hx CHF / Valvular Disease: No Hx Palpitations: No Cardiovascular History Comment: HTN DX 2016 AGO PLACED ON RX- well managed - Pulmonary History Hx COPD: No Hx Asthma/Reactive Airway Disease: No Hx Recent Upper Respiratory Infection: No Hx Oxygen in Use at Home: No Hx Sleep Apnea: No Sleep Apnea Screening Result - Last Documented: Positive Pulmonary History Comment: tino triggers - Neurologic History Hx Cerebrovascular Accident: No Hx Seizures: No Hx Dementia: No - Endocrine History Hx Diabetes: No - Renal History Hx Renal Disorders: Yes Renal History Comment: nocturia - Liver History Hx Hepatic Disorders: No - Neurological & Psychiatric Hx Hx Neurological and Psychiatric Disorders: Yes Neurological / Psychiatric History Comment: insomnia - Cancer History Hx Cancer: Yes Cancer History Comment: SKIN - Congenital Disorder History Hx Congenital Disorders: No - GI History Hx Gastrointestinal Disorders: No Gastrointestinal History Comment: hx of colon polyp - Other Health History Other Health History: HIV POSITIVE - Chronic Pain History Chronic Pain: Yes (THORACIC AREA) - Surgical History Prior Surgeries: RT TOTAL ANKLE 06/21/17. RT ANKLE revision 2015. CHERRI TOTAL ANKLE. LOPES RODS TLIF. CERVICAL DISCECTOMY. TONSILLECTOMY. RT KNEE SCOPE ANE Review of Systems Review of Systems: - Exercise capacity METS (RN): 4 METS ANE Patient History - Allergies Allergies/Adverse Reactions: lisinopril Allergy (Mild, Verified 06/02/17 23:57) DRY COUGH - Home Medications Home Medications: clonazePAM [Klonopin (*)] 0.5 mg PO Q6 PRN 12/29/11 [Last Taken 09/19/18 18:00] Dolutegravir Sodium [Tivicay] 50 mg PO DAILY 07/01/16 [Last Taken 09/20/18 05:00 ] Emtricitabine/Tenofov Alafenam [Descovy 200-25 mg Tablet] 1 tab PO DAILY [Last Taken 09/20/18 05:00] Losartan/Hydrochlorothiazide [Losartan-Hctz 100-25 mg Tab] 1 each PO DAILY 04/12 [Last Taken 09/19/18 08:00] traMADol [Ultram 50 mg (*)] 50 mg PO Q4 PRN 04/12/17 [Last Taken 09/19/18 12:00] Tizanidine HCl [Zanaflex] 4 mg PO TID PRN 09/19/18 [Last Taken 09/19/18 18:00] Multivitamins [Multivitamin (*)] 1 each PO DAILY 09/20/18 [Last Taken 09/13/18] amLODIPine BESYLATE [Norvasc 10 mg (*)] 10 mg PO DAILY 09/20/18 [Last Taken 05:00] Ibuprofen 400 mg PO Q6 PRN 11/20/18 [Last Taken Unknown] Aspirin [Aspirin 81mg (*)] 81 mg PO DAILY 11/28/18 [Last Taken Unknown] - Smoking Hx Smoking Status: Former smoker - Family Anes Hx Family Hx Anesthesia Complications: none ANE Labs/Vital Signs - Vital Signs Height: 175.26 cm Weight: 68.039 kg ANE Physical Exam - Airway Neck exam: FROM Mallampati Score: Class 1 Mouth exam: dentures - Pulmonary Pulmonary: clear to auscultation - Cardiovascular Cardiovascular: regular rate and rhythym - ASA Status ASA Status: II ANE Anesthesia Plan Anesthesia Plan: general endotracheal anesthesia Lines/Monitors: arterial line
[2018-11-29] MEDS ORDERED: MIDAZOLAM 2 MG/2 ML VIAL IVP ONE (06:49)
[2018-11-29] MEDS ORDERED: DEXMEDETOMIDINE HCL 400 MCG in NS 100 ML IV SCH ×2 (07:00→08:30)
[2018-11-29] MEDS ORDERED: PROPOFOL/EMULSION 500 MG/50 ML BOTTLE IV ONE ×4 (07:26→14:52)
[2018-11-29] MEDS ORDERED: fentaNYL 250 MCG/5 ML INJ ONE (07:26)
[2018-11-29] MEDS ORDERED: PROPOFOL 200 MG/20 ML VIAL ONE (07:26)
[2018-11-29] MEDS ORDERED: DEXAMETHASONE 4 MG/ML VIAL ONE ×3 (07:33)
[2018-11-29] MEDS ORDERED: ROCURONIUM 50 MG/5 ML VIAL ONE (07:33)
[2018-11-29] MEDS ORDERED: PETROLAT,WHT/MIN OIL/SOD CHL 3.5 GM OPHT.OINT ONE (07:36)
[2018-11-29] MEDS ORDERED: BUPIVACAINE/EPI 0.25% 30 ML SDV ONE ×2 (07:51→12:21)
[2018-11-29] MEDS ORDERED: BACITRACIN 50,000 UNITS/10 ML SYR IRR ONE ×2 (07:51→12:23)
[2018-11-29] MEDS ORDERED: traMADol 50 MG TAB PO PRN (07:52)
[2018-11-29] MEDS ORDERED: THROMBIN (BOVINE) 5,000 UNIT VIAL TP ONE (07:52)
[2018-11-29] MEDS ORDERED: CHLORHEXIDINE GLUC HIBICLENS 118 ML BTL TP ONE (07:53)
[2018-11-29] MEDS ORDERED: HYDROCODONE/APAP 5/325 TAB PO PRN (08:12)
[2018-11-29] MEDS ORDERED: POLYETHYLENE GLYCOL 3350 17 GM PKT PO PRN (08:12)
[2018-11-29] MEDS ORDERED: BISACODYL 10 MG SUPP PR PRN (08:12)
[2018-11-29] MEDS ORDERED: MAGNESIUM HYDROXIDE 30 ML UDCUP PO PRN (08:12)
[2018-11-29] MEDS ORDERED: ONDANSETRON 4 MG/2 ML VIAL IVP PRN ×2 (08:12→15:22)
[2018-11-29] MEDS ORDERED: ZOLPIDEM TARTRATE 5 MG TAB PO PRN (08:12)
[2018-11-29] MEDS ORDERED: HYDROmorphONE/DILAUDID 6 MG/30 ML PCA IV PRN (08:12)
[2018-11-29] MEDS ORDERED: diphenhydrAMINE 25 MG CAP PO PRN (08:12)
[2018-11-29] MEDS ORDERED: ONDANSETRON DISINTEGRATING 4 MG TAB PO PRN (08:12)
[2018-11-29] MEDS ORDERED: NALOXONE HCL 0.4 MG/ML INJ IVP PRN ×2 (08:12→15:22)
[2018-11-29] MEDS ORDERED: LACTULOSE 20 GM/30 ML UDCUP PO PRN (08:12)
[2018-11-29] MEDS ORDERED: NS 1,000 ML IV SCH (08:15)
[2018-11-29] MEDS ORDERED: LIDOCAINE 2% 100 MG/5 ML SYR ONE (08:19)
[2018-11-29] MEDS ORDERED: PHENYLEPHRINE 10 MG/ML SDV ONE (08:55)
[2018-11-29] MEDS ORDERED: GLYCOPYRROLATE 0.2 MG/1 ML VIAL ONE (09:19)
[2018-11-29] MEDS ORDERED: HYDROmorphONE/DILAUDID 2 MG/ML INJ ONE ×2 (09:44→15:31)
[2018-11-29] MEDS: POVIDONE-IODINE 30 GM OINTTUBE TP ONE ×2 (10:12→16:17)
[2018-11-29] MEDS ORDERED: ePHEDrine SULFATE 25 MG/5 ML SYR ONE ×2 (13:38)
--- NOTE | 2018-11-29 14:25 | PDMN ---
Medical Necessity Medical necessity: [facility] IP only surgery, cpt 19259 Posterior/Anterior Cervical Fusion
[2018-11-29] MEDS ORDERED: HYDROmorphONE/DILAUDID 1 MG/ML INJ IVP PRN (15:22)
[2018-11-29] MEDS ORDERED: PHENYLEPHRINE HCL 100 MCG/ML SYR IVP PRN (15:22)
[2018-11-29] MEDS ORDERED: PROMETHAZINE HCL 25 MG/ML INJ IVP PRN (15:22)
[2018-11-29] MEDS ORDERED: ALBUTEROL 3 ML DEYVIAL IH PRN (15:22)
[2018-11-29] MEDS ORDERED: LR 500 ML IV PRN (15:22)
[2018-11-29] MEDS ORDERED: MEPERIDINE 25 MG/0.5 ML AMP IVP PRN (15:22)
[2018-11-29] MEDS ORDERED: DIAZEPAM 10 MG/2 ML SYR IVP PRN (15:22)
[2018-11-29] MEDS ORDERED: METOCLOPRAMIDE 10 MG/2 ML VIAL IVP PRN (15:22)
[2018-11-29] MEDS ORDERED: DEXAMETHASONE 4 MG/ML VIAL IVP PRN (15:22)
[2018-11-29] MEDS ORDERED: fentaNYL 100 MCG/2 ML INJ IVP PRN (15:22)
[2018-11-29] MEDS ORDERED: ONDANSETRON 4 MG/2 ML VIAL ONE (15:26)
[2018-11-29] MEDS: FAMOTIDINE 20 MG TAB PO SCH ×2 (15:48→20:54)
--- NOTE | 2018-11-29 16:11 | POSTOPPROG ---
Post Op Note Date of Operation: 11/29/18 Surgeon: Clinton Queen Microfilm Equipment Inspector: MELIA Salvador Anesthesiologist: MD Stella Anesthesia: GET(General Endotracheal), Local (Specify) Pre-op Diagnosis: Cervical stenosis/myelopathy Post-op Diagnosis: Cervical stenosis/myelopathy Indication: MRI/stenosis Procedure: ACDF C34, corpectomy C6, ACDF C5-C7 with PSF C3-C7 Findings: see op report Inf/Abcess present in the surg proc area at time of surgery?: No Depth: Deep Incisional (Fascial) EBL: 100-500 Total fluids administered: see anesthesia record Complications: none Bowel Protocol: Yes Clean Closure Performed: Yes Drains: Mike Varela
--- NOTE | 2018-11-29 16:17 | SOAPPROG ---
SOAP Progress Note Assessment/Plan: Post Op Visit: S: Awake and alert. NAD. No f/c/n/v/d. O: AFVSS/PERRLA/EOMI no droop CN 2-12 grossly intact +lt touch 5/5 BUE/BLE = CDI x [address] A/P: 58 yo male that is s/p ACDF C34 with corpectomy at C6 with ACDF C5-C7 as well as PSF C3-C7 -orders in place -call with any questions or concerns -take medications as directed -seen by Dr Queen -PT/OT/ST pending -post op xrays in am -pt understands and agrees Objective: Vital Signs Temp Pulse Resp BP Pulse Ox 36.5 C 64 18 141/92 H 95 11/29/18 06:40 11/29/18 06:40 11/29/18 06:40 11/29/18 06:40 11/29/18 06:40 ICD10 Worksheet Patient Problems: Problems Problem Status Onset Cervical spinal stenosis Acute Cervical vertebral fusion syndrome Acute Pseudoarthrosis of cervical spine Acute Lumbar spinal fusion Active Status post thoracic spinal fusion Acute Thoracic stenosis Acute - ICD10 Problem Qualifiers (1) Cervical spinal stenosis (2) Cervical vertebral fusion syndrome (3) Pseudoarthrosis of cervical spine
--- NOTE | 2018-11-29 16:17 | POSTANESTH ---
Post Anesthetic Evaluation Cardiovascular Status: Normal, Stable Respiratory Status: Normal, Stable Level of Consciousness/Mental Status: Can Participate in Eval Pain Control: Adequate, Prn Tx Ordered Nausea/Vomiting Control: Adequate, Prn Tx Ordered Complications Possibly Related to Anesthesia: None Noted
[2018-11-29] MEDS ORDERED: ceFAZolin 2 GM/DEXTROSE 100 ML IV SCH (17:00)
[2018-11-29] MEDS: GABAPENTIN 300 MG CAP PO SCH ×2 (18:23→22:44)
[2018-11-29] MEDS: ACETAMINOPHEN 500 MG TAB PO SCH ×2 (18:23→22:44)
[2018-11-29] MEDS: SENNOSIDES/DOCUSATE SODIUM TAB PO SCH ×2 (18:24→18:35)
[2018-11-29] MEDS: METHOCARBAMOL 750 MG TAB PO PRN (18:35)
[2018-11-29] MEDS: oxyCODONE IR 5 MG TAB PO PRN (18:35)
--- NOTE | 2018-11-29 18:46 | GOP ---
[f rep st] OPERATIVE REPORT DATE OF OPERATION: 11/29/2018 SURGEON: Samra Queen MD NEUROSURGEON: Alonso Queen MD. PRESIDENT/[employer] EXPERIENCES: Ananda Salvador PA-C. PREOPERATIVE DIAGNOSIS: Cervical spondylosis with stenosis, myelopathy and arm weakness. C3-4, C5-6 , C6-7 pseudarthrosis following fusion at C5-6. POSTOPERATIVE DIAGNOSIS: Cervical spondylosis with stenosis, myelopathy and arm weakness. C3-4, C5- 6, C6-7 pseudarthrosis following fusion at C5-6. PROCEDURE PERFORMED: Posterior cervical laminectomy without facetectomy at C3-4, C4-5, two levels (6 3001), posterolateral arthrodesis only C3-4 (22962); posterolateral arthrodesis C4-5, C5-6, C6-7 (226 14 x3); posterior segmental instrumentation C3, C4, C5, C7 (00397); same-incision bone graft harvest; spinal stereotaxis. FINDINGS: ESTIMATED BLOOD LOSS: 200 mL. INDICATIONS: The patient has multilevel spinal spondylosis and stenosis, both of the cervical, thora cic and lumbar spine. Please see the accompanying op report earlier in the day for a detailed descri ption. I suggested posterior cervical fusion and decompression from C3 to C7, and I thought we might only do a C4 laminectomy to decompress the C3-4 level, but I ultimately ended up removing C5 as well , which does not change the surgical code, but we got a great posterior decompression at those levels . There was no removal at C6 or C7. I suggested the posterior approach because of the large ventral construct and the remarkable spondylosis of the spine. I did not want him to be at risk of developi ng a pseudarthrosis. He knew there was risk of infection, neck pain, spinal cord injury, screw and h ardware failure, malposition, CSF leak, nerve injury, continued symptoms. He knew that surgery does not always alleviate the weakness in the arm and he knew that surgery can actually make his symptoms worse, but that was unlikely. He wanted to proceed despite these risks. DESCRIPTION OF PROCEDURE: The patient had just had an anterior approach done. He was moved from the hospital bed onto a stretcher, where he was placed in the [place] head frame. He was then flipped prone onto the Mike table. Care was taken to pad all points of contact. His arms were tucked at his sides. His neck was kept in a neutral position with the occiput flexed. He was secured in that position. He was sterilely prepped and draped in the usual fashion. We made a midline incision from the spinous process of C2 down to the spinous process of T1. The subcutaneous tissue was dissected using Bovie cautery down through the fascia and a subperiosteal dissection was made down the inferior lamina of C2. The lamina of C3, C4, C5, C6 and C7 was exposed. There actually appeared to be poste rior spondylosis even between C7 and T1, and I was surprised by this. This is present in the intersp inous region. We exposed the lateral masses of C3. Coming off the left C2-3 lateral mass complex an d facet joint was a large, sesamoid, floating hunk of coming out of the C2-3 facet joint, which was u ltimately removed. We decorticated all the bone posterolaterally bilaterally at C3, C4, C5, C6, C7 a nd attached a Stealth reference frame and using frameless Stealth stereotaxy, we placed pedicle screw s bilaterally at C7. We then made ship harbor pilot holes for our C3, C4 and C5 lateral mass screws, and we used Stealth to help plan these. There was remarkable upward angulation at C3, well beyond the normal 30 degrees. It was closer to 60 degrees up at C3, based upon the Stealth data. Once we had made these ship [place] pilot holes, I then went and performed a laminectomy where I was going to then perform a laminectomy at C4-5. We had removed the Stealth reference frame. We then harvested the C4 lamina initially and harvested all this bone for autologous grafting purposes. I then used a Kerrison to decompress the thecal sac behind C4 and undercutting C3. We got a great decompression there. The dura still appear ed to be pinched where it dove under the C5 vertebral body and I elected, at that point, to remove C5 as well. We harvested this bone as well for autologous grafting purposes and decompressed the C5 la kory. We got a great decompression and the dura looked much better after that. After the decompress ion was done, I placed the 6 remaining lateral mass screws in place, attached a new Stealth reference frame to the C7 spinous process, performed an O-arm spin and all the screws in excellent position in cluding the C7 pedicle screws. They appeared to be well seated within the pedicle without breach of the pedicle or the surrounding neural foramen. The lateral mass screws were all seated well within t he lateral masses. We took rods, cut them to size, increased the lordosis in the rods, spent time ad justing our tulips of the Infinity system with the preferred angle adjustment, getting the screws all co-aligned and then we dropped the rods down onto them. We then placed cap screws onto the tulips, locking the rods in place. We decorticated all remaining posterolateral bone from C3 to C7 and the f acet joints bilaterally. Placed bone autograft and BMP posterolaterally bilaterally from C3 to C7. We then placed a subfascial drain. Our final motor-evoked potentials were stable compared to the beg inning of the case. We then closed the incision in multiple layers using Vicryl sutures. Steri-Stri ps were applied to the skin. The patient was reversed from anesthesia, extubated and transferred to the recovery room in stable condition after the [place] head frame had been removed before anesthesi a was reversed. There were no complications. He tolerated the procedure well. COMPLICATIONS: None. INSTRUMENTATION USED: Medtronic Infinity posterior. We used 18 mm screws at C7 and 14 mm screws at C3, C4, C5. /[id number]/MODL
--- NOTE | 2018-11-29 19:57 | GOP ---
[f rep st] OPERATIVE REPORT DATE OF OPERATION: 11/29/2018 SURGEON: Samra Queen MD SUPERVISOR RECORD PRESS: Ananda Salvador PA-C PREOPERATIVE DIAGNOSIS: Cervical spondylosis, cervical stenosis with myelopathy, left arm weakness. Prior cervical fusion C4-5, C5-6, with what appears to be a pseudarthrosis at C5-6. Cervical retrol isthesis, C3-4. POSTOPERATIVE DIAGNOSIS: Cervical spondylosis, cervical stenosis with myelopathy, left arm weakness. Prior cervical fusion C4-5, C5-6, with what appears to be a pseudarthrosis at C5-6. Cervical retro listhesis, C3-4. PROCEDURE PERFORMED: Anterior cervical diskectomy and fusion at C3-4 with decompression (34301), veena cement of biomechanical intervertebral device C3-4, placement of anterior cervical plate at C3-4, chris e incision bone graft harvest, microscope. We then did a separate anterior cervical diskectomy and f usion at C5-6, C6-7 with complete C6 corpectomy (18987, 53799, 40996), microscope, another anterior c ervical plate at C5, C6, C7 (16728), placement of a single biomechanical intervertebral device spanni ng from C5-C7 (01333)with a stackable PEEK cage, same incision bone graft harvest. FINDINGS: ESTIMATED BLOOD LOSS: 150 cc. INDICATIONS: The patient is a long time patient of mine who had a prior multilevel lumbar fusion wit h good clinical result who then developed symptomatic thoracic stenosis with thoracic radiculopathy a nd underwent the two-level thoracic fusion with good result. He also has adjacent segment disease an d severe stenosis above his lumbar fusion, but also was having profound weakness of the left hand and losing the ability to use the left arm, and his MRI demonstrated severe stenosis at C3-4 with signif icant julianna retrolisthesis of C3 on C4 and circumferential stenosis at that level. There is also santiago dence of significant stenosis at C5-6. C4-5 looked pristine. C5-6 had the appearance of a prior non instrumented ACDF. C6-7 had a normal-appearing disk, but there was also a degree of stenosis presen t at that level. The foraminal stenosis was not bad at C6-7. I suggested a skip level anterior cerv ical diskectomy and fusion at C3-4 with an ACDF at C5-6, C6-7, and I originally thought I might be ab le to do a redo ACDF at C5-6, but after reviewing the films more closely, I decided to do a C6 corpec maurilio. I did not think after doing ACDFs at C5-6, C6-7, there would be enough C6 vertebral body to ev en capture with a screw, but I also felt it is quite likely we would find that the disk space at C5-6 was a pseudoarthrosis level as it had that appearance on MRI. It was a highly irregular disk space with significant coronal plane deformities, and I did not think that we be able to preserve very much of C6 if we did a separate ACDF there. I discussed this with the patient, and he agreed to proceed. He knew there was risk of esophageal injury, carotid injury, recurrent laryngeal nerve injury, pseu doarthrosis, adjacent segment disease, further spine surgery either above or below. He knew there wa s risk of terrible dysphagia. He knew the esophageal injury, if it occurred, was a very serious comp lication and could lead to life-threatening infection. He knew he may need future revision surgery. He knew there was risk of screw and hardware failure and malposition. He wanted to proceed despite these risks. He also knew there was a chance that surgery would fail to eliminate his left arm weakn ess, but he knew this gave him the best chance of recovery. He wanted to proceed despite these risks . DESCRIPTION OF PROCEDURE: The patient was taken to the operating room, placed in the supine position . General anesthesia was begun. A midline shoulder roll was placed. His head was kept neutral with the occiput extended. His neck was sterilely prepped and draped in the usual fashion. We made a lo ngitudinal incision just into the sternocleidomastoid on the right side. His prior incision appeared to be on the left side. It was a transverse incision. We made an incision from C3 all the way down to C7. The subcutaneous tissue was dissected using Bovie cautery down to the platysma, and we then used a combination of sharp and blunt dissection initially to expose the C5-6, C6-7 space. We worked our way down and worked just rostral to the omohyoid muscle, sweeping it inferiorly, and we had a gr eat exposure of C6-7. As we exposed C5-6, there was evidence of prior surgery at C5-6, and there was a Mersilene suture present in the prevertebral space. We exposed this level from the mid C5 vertebr al body all the way to the mid C7 vertebral body and placed 2 navy fighter pilot holes with a high-speed drill in those vertebral bodies. We then ceased this dissection and, through the same incision, we went more rostrally, came back out very superficially to the most superficial dissection underneath the platysm a and began a separate rostral dissection medial to the sternocleidomastoid and lateral to the strap muscles down the prevertebral space at C3-4. This dissection was a little more challenging than the one inferiorly at C5-6, C6-7, but it was still relatively straightforward. There were more neurovasc ular structures present, and we did not need to divide any of these. We approached the prevertebral space, and placed a needle on top of the C3 vertebral body. It was significantly retrolisthesed comp ared to C4. Here again, there were some Mersilene sutures ventral to the C4 vertebral body and in th e prevertebral space. A self-retaining retractor was placed. We dissected the longus colli muscles off the spine at C3-4, placed a single pin at C3, a single pin at C4 and distracted between these 2 b ones. We removed the C3-4 disk in its entirety. As we approached the disk space posteriorly, we fou nd disk material in our inferior disk space, and then we continued drilling rostral to the disk space , and there was a large amount of retrolisthesed C3 bone in the spinal canal. We harvested all this for autologous grafting purposes. We drilled subchondral bone and harvested this for autologous ever ting purposes. We then drilled through the retrolisthesed bone down to the prevertebral fascia at C3 -4 and thinned that bone out so that it could be totally removed. We then turned our attention infer iorly in the disk space and opened up the posterior disk space itself just adjacent to the C4 vertebr al body and opened the posterior longitudinal ligament and decompressed the thecal sac, and worked fr om C4 pedicle to C4 pedicle. We then turned and made a separate opening in the posterior longitudina l ligament behind the C4 retrolisthesed bone. We then came across this, and then we removed the larg e posterior disk space and inferior lip of C3, decompressing the spinal canal nicely. We decompresse d the exiting C4 nerve roots above the C4 pedicle out in the neural foramen, and it is rather fascina ting because there was significant uncinate process hypertrophy rostral to the root with significant retrolisthesis, and we had to remove this bony osteophyte directly above the C4 root to really open t he foramen. We got a great opening, and it went terrifically on both sides. There was only slight r eduction of the C3-4 retrolisthesis. We chose a 7 mm cage and inserted at C3-4. A nice fit was obta ined. The x-ray looked great. We then placed a 21 mm plate there and placed 4 screws in the plate a nd locked it according to company specification. We then turned our attention, removed our distracti on pins naturally, and went down to the C5-6, C6-7 levels, where we placed a self-retaining retractor and exposed the C5-6 and C6-7. There was evidence of prior diskectomy at C5-6, as there, again, was scar tissue present above the disk space. We distracted at C5-6 across the C6 vertebral body and do wn to C7. Under the microscope, we removed the C6-7 disk in its entirety. We removed the cartilagin ous endplates attached to C7, the cartilaginous endplates attached to C6. We went into the C5-6 disk where we did likewise, drilling out this degenerative disk, and it was really a bizarre disk. It wa s not horizontal at all. On the left side, there was a large protruding bone coming up off the C6 ve rtebral body and protruding into the C5 vertebral body. It was a highly irregular disk, and we drill ed out all this cartilage. Once we had the C6 bone skeletonized, we harvested this entire bone for a utologous grafting purposes and drilled it out widely on both sides down to the posterior longitudina l ligament. Here, we opened the posterior longitudinal ligament at the inferior C6 bone and then wor ked our way down the C6-7 disk which was removed with relative ease. We did perform foraminotomies f or the bilateral C7 nerve roots. We then began working in the epidural space up toward the C5-6 leve l and, indeed, this was all completely stuck to the posterior disk at C5-6, because it was a redo lev el after all. We worked our way out lateral to this, adjacent to the C6 pedicles and then followed t he epidural space above the C6 out widely into the neural foramen on both sides at C5-6. This allowed us to decompress the exiting C6 nerve root without actually entering the scar in the epi dural space at the C5-6 disk space itself. We then undercut the C6 vertebral body and removed all of this material, getting a great central decompression as well, leaving just a thin remnant of scar on the dura across the disk space. We then prepared this large corpectomy defect for acceptance of a b iomechanical device, and we measured it twice and chose a 23 mm stackable device. It was constructed on the back table and packed with julianna allograft. We had a large amount of this. It was inserted under fluoroscopic guidance between C5 and C7, and I was happy with the position of the device. We t hen placed additional bone autograft on the patient's left-hand side at C5-6, C6-7 to conclude our ar throdesis at C5-6, C6-7. We then chose a 39 mm Zevo plate, placed 4 screws in the plate, locked them according to company specification, and shot a final x-ray. We then achieved meticulous hemostasis and then closed the incision in multiple layers using Vicryl sutures. There had been no complication s. The patient tolerated the procedure well. Steri-Strips were applied to the skin, and a sterile d ressing was applied. This concluded the anterior procedure for this patient. There will be another dictation of the poste rior procedure that is performed on the same day through a separate incision. COMPLICATIONS: None. HARDWARE USED: 21 mm Zevo plate at C3-4 with a 7 mm cage at that level. We used a 23 mm stackable P [place] cage from C5-C7 with a 39 mm Zevo plate at that level. /[id number]/MODL
[2018-11-29] MEDS: HYDROmorphONE/DILAUDID 1 MG/ML INJ IVP PRN ×2 (20:05→22:46)
[2018-11-29] MEDS: ceFAZolin 2 GM/DEXTROSE 100 ML IV SCH (20:54)
[2018-11-29] MEDS: clonazePAM 0.5 MG TAB PO PRN (22:46)
[2018-11-30] MEDS: HYDROmorphONE/DILAUDID 1 MG/ML INJ IVP PRN ×3 (03:00→11:11)
[2018-11-30] MEDS: ceFAZolin 2 GM/DEXTROSE 100 ML IV SCH (04:56)
[2018-11-30] MEDS: ACETAMINOPHEN 500 MG TAB PO SCH ×3 (05:04→22:46)
[2018-11-30 05:57] LABS: PLATELET COUNT 245 10^3/uL (150-400)
--- NOTE | 2018-11-30 06:55 | NEUSURGPN ---
Date of Surgery: 11/29/18 Post Op Day: 1 Assessment/Plan: Assessment: 58 yo male that is s/p ACDF C3/4 with corpectomy at C6 with ACDF C5- C7 as well as PSF C3-C7 POD #1 Plan: -s/p A/P cervical fusion: Pt with some neck pain. Pt states that his arms feel fine -orders in place -Hangar to fit an [place] collar -call with any questions or concerns -take medications as directed -seen by Dr Queen -PT/OT/ST pending -post op xrays this am -pt understands and agrees Subjective: Awake and alert. NAD. Eating/drinking/voiding. No de santiago/neck/chest/abd or gu complaints. Objective: AAO x 3, PERRLA/EOMI no droop CN 2-12 grossly intact +lt touch 5/5 BUE/BLE = +cms/nv intact x 4 CDI x [address] Neuro Check Frequency: per routine Urinary Catheter in Place: No - Physician Discussed Patient with Dr.: Bret Patient Seen by : Bret Neurosurgery Physical Exam - Vitals, I&O, Labs I and O 11/29/18 11/30/18 12/01/18 05:59 05:59 05:59 Intake Total 2600 Output Total 1470 Balance 1130 Weight 68.039 kg Intake: Oral (ml) 400 IV Intake (ml) 2200 Output: Urine (ml) 900 Catheter 900 Estimated Blood Loss (ml) 350 Emesis (ml) 0 JENNIFER Drain Output (ml) 220 #1 Posterior Neck 220 Vital Signs Temp Pulse Resp BP Pulse Ox 36.4 C 76 16 129/82 H 98 11/30/18 04:00 11/30/18 04:00 11/30/18 04:00 11/30/18 04:00 11/30/18 04:00 Laboratory Results 11/30/18 05:13 11/30/18 05:13 ICD10 Worksheet Patient Problems: Problems Problem Status Onset Cervical spinal stenosis Acute Cervical vertebral fusion syndrome Acute Pseudoarthrosis of cervical spine Acute Lumbar spinal fusion Active Status post thoracic spinal fusion Acute Thoracic stenosis Acute - ICD10 Problem Qualifiers (1) Cervical spinal stenosis (2) Cervical vertebral fusion syndrome (3) Pseudoarthrosis of cervical spine
[2018-11-30] MEDS: TENOFOV ALAFENAM PO SCH ×2 (07:42→14:56)
[2018-11-30] MEDS: EMTRICITABINE PO SCH ×2 (07:42→14:56)
[2018-11-30] MEDS: DOLUTEGRAVIR SODIUM 50 MG PO SCH ×2 (07:42→14:57)
[2018-11-30] MEDS: LOSARTAN/HCTZ 50/12.5 1 TAB PO SCH ×2 (07:43→07:55)
[2018-11-30] MEDS: SENNOSIDES/DOCUSATE SODIUM TAB PO SCH ×2 (07:53→22:29)
[2018-11-30] MEDS: oxyCODONE IR 5 MG TAB PO PRN ×4 (07:54→22:29)
[2018-11-30] MEDS: FAMOTIDINE 20 MG TAB PO SCH ×2 (07:54→22:29)
[2018-11-30] MEDS: GABAPENTIN 300 MG CAP PO SCH ×3 (07:54→22:29)
[2018-11-30] MEDS: METHOCARBAMOL 750 MG TAB PO PRN ×3 (07:54→22:28)
--- NOTE | 2018-11-30 17:03 | ASMTCMCOM ---
CM Note CM Note Notes: Pt had planned spinal fusion. Pt resides alone, pt sister and mother have arranged to stay with him during recovery. 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 It appears [facility] is the only HC to services pt [facility], CM to follow up with pt to see if he wants HC. D/c plan of care: Home with C Date Signed: 11/30/2018 05:02 PM Electronically Signed By:HAO Lee
[2018-11-30] MEDS: clonazePAM 0.5 MG TAB PO PRN (22:30)
[2018-12-01] MEDS: METHOCARBAMOL 750 MG TAB PO PRN ×3 (03:55→16:00)
[2018-12-01] MEDS: oxyCODONE IR 5 MG TAB PO PRN ×3 (03:55→14:48)
[2018-12-01] MEDS: GABAPENTIN 300 MG CAP PO SCH ×2 (05:41→14:48)
[2018-12-01] MEDS: ACETAMINOPHEN 500 MG TAB PO SCH ×2 (05:41→14:48)
--- NOTE | 2018-12-01 08:07 | NEUSURGPN ---
Assessment/Plan: Assessment: 58 yo male that is s/p ACDF C3/4 with corpectomy at C6 with ACDF C5- C7 as well as PSF C3-C7 POD #2 On home HIV meds and Hep B mediations Plan: -Optimize pain management -Hangar to fit an [place] collar -call with any questions or concerns -D/c JENNIFER drain -Discussed with Dr Queen -PT/OT/ST pending -Post op xrays with intact hardware -pt understands and agrees Subjective: Pain tolerable with medications Objective: AAO x 3, PERRLA/EOMI 5/5 BUE/BLE = +cms/nv intact x 4 CDI x [address] - Physician Discussed Patient with : Bret Neurosurgery Physical Exam - Vitals, I&O, Labs I and O 11/30/18 12/01/18 12/02/18 05:59 05:59 05:59 Intake Total 2600 1400 Output Total 1470 2465 Balance 1130 -1065 Weight 68.039 kg Intake: Oral (ml) 400 1400 IV Intake (ml) 2200 Output: Urine (ml) 900 2100 Catheter 900 Urinal 2100 Estimated Blood Loss (ml) 350 Emesis (ml) 0 JENNIFER Drain Output (ml) 220 365 #1 Posterior Neck 220 365 Other: Number of Voids Toilet 1 Urinal 1 Vital Signs Temp Pulse Resp BP Pulse Ox 36.5 C 72 19 146/86 H 91 L 12/01/18 07:52 12/01/18 07:52 12/01/18 07:52 12/01/18 07:52 12/01/18 07:52 Laboratory Results 11/30/18 05:13 11/30/18 05:13 ICD10 Worksheet Patient Problems: Problems Problem Status Onset Cervical spinal stenosis Acute Cervical vertebral fusion syndrome Acute Pseudoarthrosis of cervical spine Acute Lumbar spinal fusion Active Status post thoracic spinal fusion Acute Thoracic stenosis Acute
[2018-12-01] MEDS: FAMOTIDINE 20 MG TAB PO SCH (09:47)
[2018-12-01] MEDS: SENNOSIDES/DOCUSATE SODIUM TAB PO SCH (09:49)
[2018-12-01] MEDS: LOSARTAN/HCTZ 50/12.5 1 TAB PO SCH (09:49)
[2018-12-01] MEDS: EMTRICITABINE PO SCH (09:52)
[2018-12-01] MEDS: DOLUTEGRAVIR SODIUM 50 MG PO SCH (09:52)
[2018-12-01] MEDS: TENOFOV ALAFENAM PO SCH (09:52)
--- NOTE | 2018-12-01 10:09 | ASMTCMCOM ---
CM Note CM Note Notes: Pt declines skilled home care, reports he will do fine with the support of his sister and mother who will stay with him the next two weeks. Pt states he has had this same surgery before. Pt mother will provide transport home. Pt has DME. Pt declines help with a follow up PCP appointment with [facility] PCP Jessica Jenkins. Anticipate pt will d/c when medically stable, no CM d/c needs identified. CM available for changes/needs. D/c plan of care: Home with family support Date Signed: 12/01/2018 10:07 AM Electronically Signed By:HAO Lee
[2018-12-01 11:20] VITALS: BP 136/83
[2018-12-02] MEDS ORDERED: ENOXAPARIN 40 MG/0.4 ML SYR SC SCH (09:00)
== END 2018-12-01 16:07 | disposition home health service (06) | DRG 321 ==
LOC: F3N 06:27 → F2N 18:21 → F3N 11-30 10:55
PROVIDERS: ADMIT Neurological Surgery; ATTEND Neurological Surgery
DX: M47.12 Other spondylosis with myelopathy, cervical region (principal); G47.00 Insomnia, unspecified; M43.12 Spondylolisthesis, cervical region; M96.0 Pseudarthrosis after fusion or arthrodesis; M48.02 Spinal stenosis, cervical region; Z98.1 Arthrodesis status; I10 Essential (primary) hypertension; G47.33 Obstructive sleep apnea (adult) (pediatric); Z21 Asymptomatic human immunodeficiency virus [HIV] infection status; Z87.891 Personal history of nicotine dependence
CPT/HCPCS: 92526-GN; 92610-GN; 97116-GP; 97161-GP; 97166-GO; 97535-GO; C1713; J0690; J1100; J1170; J2001; J2370; J2405; J2704; J3010

== ENCOUNTER → 2019-01-17 | Outpatient (CLI) | payer MEDICAID | LOC: FIMAGING 13:35 ==